=== PATIENT | male | born 1985 | race Caucasian/White ===

== ENCOUNTER 2018-05-25 10:08 | Emergency (ER) | payer MEDICAID, OTHER ==
[2018-05-25] MEDS ORDERED: 0.9 % SODIUM CHLORIDE 1,000 ML IV STA (10:12)
[2018-05-25] MEDS ORDERED: ONDANSETRON HCL/PF 4 MG/ 2ML VIAL IVP STA (10:28)
--- NOTE | 2018-05-25 10:28 | ED Physician Documentation ---
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 pt reports his was admitted to the hospital for gastroenteritis. pt reports ETOH 2 days ago. pt reports he has not been able to eat/drink in the past 2 days. denies fever, reports diaphoresis, chills. pt denies current chest pain, dyspnea, syncope/near syncope, headache, dizziness, visual disturbances, fever, rash, dysuria, trauma. melena or hematochezia, bleeding or easy bruising, change in bowel or bladder function, no recent weight loss/gain, anxiety or depression. ROS Negative unless otherwise specified. - ROS CONST: sweating, chills - PAST HX Past History: none Other History: none Surgeries/Procedures: none Allergies/Adverse Reactions: Allergies Allergy/AdvReac Type Severity Reaction Status Date / Time No Known Allergies Allergy Verified 05/25/18 10:53 Home Medications: Ambulatory Orders Medication Instructions Recorded Albuterol Sulfate [Proair 90 mcg IH Q6H PRN 05/25/18 Respiclick] - SOCIAL HX Smoking History: less than 1 pack/day Alcohol Use: occasionally Drug Use: marijuana - FAMILY HX Family History: No - VITAL SIGNS Vital Signs: Vital Signs Temp Pulse Resp BP Pulse Ox 136/74 08/03/12 11:43 - REVIEWED ASSESSMENTS Nursing Assessment Reviewed: Yes Vitals Reviewed: Yes Progress - Progress Progress: 1213: 114/75 HR 115 RR 20. pt reports readiness for D/C. i advised pt he should have more IV fluids. Pt refused. advised pt to drink fluids at home. pt verbalized understanding. ED Results Lab/Radiology - Orders Orders: ED Orders Category Date Time Status Blood Pressure 1T Care 05/25/18 10:26 Ordered Continuous EKG monitoring Q30M Care 05/25/18 10:25 Ordered Continuous Pulse Oximetry Q30M Care 05/25/18 10:25 Ordered Orthostatics 1T Care 05/25/18 10:[address] IV Lock 1T Care 05/25/18 10:12 Active CBC/PLATELET/DIFF Stat Lab 05/25/18 10:12 Ordered CMP [CMP] Stat Lab 05/25/18 10:12 Ordered 0.9 % Sodium Chloride [Normal Saline] 1,000 ml Med 05/25/18 10:12 Active IV Q1H General Adult Physical Exam - PHYSICAL EXAM GENERAL APPEARANCE: mild distress EENT: eye inspection normal, ENT inspection normal, pharynx normal, VIJAYA, no nystagmus, TM's nml, dry mucous membranes NECK: normal inspection, thyroid normal RESPIRATORY: no resp distress, chest non-tender, breath sounds normal. No: wheezes, rales, rhonchi CVS: reg rate & rhythm (tachycardia), heart sounds normal, equal pulses, no murmur, no gallop, PMI nml, no JVD, no friction rub, 24 ABDOMEN: soft, no organomegaly, normal bowel sounds, no abdominal bruit, no distension. 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 Rest increase fluids like gatoraid or other electrolyte replacement substance. Stop drinking. Taper off and seek detox program. take multivitamin daily seek medical care immediately if difficult to wake or weakness, difficulty breathing, feeling faint or fainting, increased rash, chest pain, shortness of breath, or fever not controlled by tylenol/motrin or any concern. follow up with primary care next week or before if not improving as expected. PLEASE UNDERSTAND THAT THIS IS AN EMERGENCY EVALUATION FOR YOUR COMPLAINT AND BY NATURE IS LIMITED AND NOT A SUBSTITUTE FOR ONGOING MEDICAL CARE. EVEN THOUGH TEST RESULTS AND TREATMENT PLAN WERE EXPLAINED THERE MAY BE A NEED FOR ADDITIONAL TESTING TO FULLY DETERMINE THE EXTENT OF YOUR ILLNESS/INJURY/OR CONCERN SO YOU SHOULD CONTACT AND OR ESTABLISH WITH A PRIMARY CARE PROVIDER (OR REFERRAL DOCTOR IF APPLICABLE) FOR AN APPOINTMENT SOON POSSIBLE Condition: Good Decision to Admit: NO Date of Decison to Admit: 05/25/18 Decision Time: 11:40
[2018-05-25 10:37] LABS: BASOPHILS % 0.5 (0.0-1.5); EOSINOPHILS % 0.8 % (0.0-6.8); MEAN CORPUSCULAR HEMOGLOBIN 29.4 pg (28.0-34.0); MONOCYTES % 7.8 % (0.0-11.0); NEUTROPHILS # 3.8 # k/uL (1.4-7.7)
[2018-05-25 10:49] LABS: eGFR (Non-African) > 60
[2018-05-25] MEDS ORDERED: THIAMINE HCL IV STA ×5 (11:01)
[2018-05-25] MEDS ORDERED: [UNRECOGNIZED DRUG - OTHER] IV STA ×5 (11:01)
[2018-05-25] MEDS ORDERED: FOLIC ACID IV STA ×5 (11:01)
[2018-05-25] MEDS ORDERED: MULTIVIT INFUSN ADULT K IV STA ×5 (11:01)
[2018-05-25] MEDS ORDERED: MULTIVIT INFUSN,ADULT 1,VIT K 10 ML VIAL IV ONE (11:11)
[2018-05-25] MEDS ORDERED: FOLIC ACID 5 MG/1 ML ONE (11:11)
[2018-05-25] MEDS ORDERED: THIAMINE HCL 200 MG/2 ML VIAL ONE (11:11)
[2018-05-25] MEDS ORDERED: 0.9 % SODIUM CHLORIDE 1,000 ML IV ONE (11:11)
[2018-05-25] MEDS ORDERED: MAGNESIUM SULFATE 1 GM/2ML VIAL ONE (11:18)
[2018-05-25 12:32] VITALS: BP 114/75
[2018-05-25 15:05] LABS: APPEARANCE,URINE CLEAR (CLEAR); COLOR,URINE YELLOW (YELLOW); OCCULT BLOOD,URINE NEGATIVE (NEGATIVE); UROBILINOGEN URINE 0.2 Eu (0.2-1.0)
== END 2018-05-25 12:15 ==
LOC: ED 10:08
DX: F10.230 Alcohol dependence with withdrawal, uncomplicated (principal); Y90.8 Blood alcohol level of 240 mg/100 ml or more; E86.0 Dehydration; R11.2 Nausea with vomiting, unspecified
CPT/HCPCS: 36415; 80053; 80320; 81002; 85025; 96365; 99283; 99284; J3411; J3475; J3490; J7030; G0480; S1016

== ENCOUNTER 2019-04-02 11:06 | Emergency (ER) | payer MEDICAID, OTHER ==
--- NOTE | 2019-04-02 11:09 | ED Physician Documentation ---
General Adult - HISTORIAN Historian: patient - HPI Stated Complaint: R knee pain Chief Complaint: General Adult Onset: minutes Timing: still present Severity: moderate Further Comments: yes (Pt is a 34 yo male with R knee pain. Pt tripped over his dog. Pt has hx of ligamentous injury to ? R lateral collateral ligament 11 years ago from football. Pt is concerned about possibly having re-injured it.) - ROS CONST: no problems EYES/ENT: none CVS/RESP: none MS/SKIN/LYMPH: other (R knee pain) - PAST HX Past History: other (previous R knee injury) Allergies/Adverse Reactions: Allergies Allergy/AdvReac Type Severity Reaction Status Date / Time No Known Allergies Allergy Verified 04/02/19 11:17 Home Medications: Ambulatory Orders Medication Instructions Recorded NK 09/17/18 - SOCIAL HX Smoking History: cigarettes - FAMILY HX Family History: No - VITAL SIGNS Vital Signs: Vital Signs Temp Pulse Resp BP Pulse Ox 132/78 09/17/18 12:59 - REVIEWED ASSESSMENTS Nursing Assessment Reviewed: Yes Vitals Reviewed: Yes Progress - Progress Progress: X-ray R knee: No acute osseous abnormality. Toradol 60 mg IM Pt has knee immobilizer and knee support wraps at home. JOSESITO wrap in ER until pt returns home. crutches NSAIDS wear knee support or immobilizer f/u pcp/ortho if sx persist. General Adult Physical Exam - PHYSICAL EXAM GENERAL APPEARANCE: moderate distress NECK: normal inspection, supple RESPIRATORY: no resp distress, chest non-tender, breath sounds normal CVS: reg rate & rhythm, heart sounds normal BACK: normal inspection SKIN: warm/dry, normal color EXTREMITIES: other (R knee pain, laterally and with stress to lateral collateral; appears stable; no effusion.) NEURO: oriented X3, motor nml, sensation nml Discharge Clincal Impression: R knee pain Referrals: Primary Doctor,No [Primary Care Provider] - Condition: Stable Disposition: 01 HOME, SELF-CARE Decision to Admit: NO Decision Time: 12:30
[2019-04-02 11:17] VITALS: BP 151/68
[2019-04-02] MEDS: KETOROLAC TROMETHAMINE 60 MG/2 ML VIAL IM ONE (11:42)
--- NOTE | 2019-04-02 12:11 | Diagnostic Imaging Report ---
PATIENT MR#: [id number] PATIENT PATIENT NAME: GAMALIEL SEVERINO DATE OF : 1985 REFERRING PHYSICIAN: Dominik Lam EXAM DATE: 04/02/2019 ACCESSION NUMBER: [id number] EXAM DESCRIPTION: KNEE 3 VIEWS Exam: Right knee 3 views Indication: RT KNEE, PAIN IN RT KNEE AFTER FALL TODAY, PT STATES HE GOT TRIPPED UP BY A DOG (Hx) / Note time : 04/02/2019 12:00:13 PM User : Megan hsieh RT KNEE, PAIN IN RT KNEE AFTER FALL TODAY, PT STATES HE GOT TRIPPED UP BY A DOG (DICOM Hx) (DICOM Hx) Findings: No acute fracture, subluxation, dislocation or other osseous abnormality is identified. If clinical symptoms persist follow up examination may be warranted to exclude an occult process. Impression: No acute osseous abnormality. Read by: Dr. Dominik Boyd Transcribed by: Transcribed Date: Electronically signed by: Dr. Dominik Boyd Date signed: 04/02/2019 12:11:13 PM
== END 2019-04-02 12:39 | disposition home or self-care (01) ==
LOC: ED 11:06
DX: M25.561 Pain in right knee (principal)
CPT/HCPCS: 73562; 96372; 99282; 99284; J1885